=== PATIENT | male | born 1955 | race Two or more races ===

== ENCOUNTER 2017-11-11 17:06 | Emergency (ER) | payer MEDICARE ==
--- NOTE | 2017-11-11 18:15 | ER Document Report ---
ED Medical Screen (RME) - General Chief Complaint: Hemorrhoids Stated Complaint: BLEEDING Time Seen by Provider: 11/11/17 18:09 Mode of Arrival: Ambulatory Information source: Patient, Relative TRAVEL OUTSIDE OF THE U.S. IN LAST 30 DAYS: Yes COUNTRY TRAVELED TO/FROM: [facility] Onset: Yesterday Onset/Duration: Sudden Quality of pain: No pain Associated Symptoms: None. denies: Dizzy/lightheaded, Nausea, Shortness of breath, Vomiting, Weakness Exacerbated by: Other - BOWEL MOVEMENT Relieved by: Denies Similar symptoms previously: No Recently seen / treated by doctor: No - Related Data Allergies/Adverse Reactions: No Known Allergies Allergy (Verified 02/09/15 13:59) Home Medications: Unable to verbalize list at this time. Past Medical History - General Information source: Patient - Social History Chew tobacco use (# tins/day): No Frequency of alcohol use: None Drug Abuse: None Lives with: Spouse/Significant other - Past Medical History Cardiac Medical History: Reports: Hx Hypertension, Other - SEVERE VALVULAR DISEASE, S/P VALVE REPLACEMENT Renal/ Medical History: Denies: Hx Peritoneal Dialysis Past Surgical History: Reports: Hx Appendectomy, Hx Cardiac Surgery - pace maker , 2 valves replaced - Immunizations Hx Diphtheria, Pertussis, Tetanus Vaccination: Yes Review of Systems - Review of Systems Constitutional: No symptoms reported EENT: No symptoms reported Cardiovascular: No symptoms reported Respiratory: No symptoms reported Gastrointestinal: See HPI Genitourinary: No symptoms reported Musculoskeletal: No symptoms reported Skin: No symptoms reported Neurological/Psychological: No symptoms reported Physical Exam - Vital signs Vitals: Temp Pulse Resp BP Pulse Ox 97.4 F 81 18 113/72 99 11/11/17 17:11 11/11/17 17:11 11/11/17 17:11 11/11/17 17:11 11/11/17 17:11 Interpretation: Normal. No: Tachycardic, Tachypneic, Febrile - General General appearance: Appears well, Alert In distress: None - HEENT Head: Normocephalic Eyes: Normal. No: Pale conjunctiva Conjunctiva: Normal Ears: Normal Nasal: Normal Mouth/Lips: Normal Mucous membranes: Normal - Respiratory Respiratory status: No respiratory distress - Cardiovascular Rhythm: Regular - Abdominal Inspection: Normal Distension: No distension - Extremities General upper extremity: Normal inspection General lower extremity: Normal inspection. No: Edema - Neurological Neuro grossly intact: Yes - Psychological Associated symptoms: Normal affect, Normal mood - Skin Skin Temperature: Warm Skin Moisture: Dry Skin Color: Normal Skin Turgor: Elastic Course - Vital Signs Vital signs: Temp Pulse Resp BP Pulse Ox 97.4 F 81 18 113/72 99 11/11/17 17:11 11/11/17 17:11 11/11/17 17:11 11/11/17 17:11 11/11/17 17:11
[2017-11-11 18:33] LABS: ABSOLUTE BASOPHILS # (AUTO) 0.1 10^3/uL (0.0-0.2); ABSOLUTE EOSINOPHILS # (AUTO) 0.1 10^3/uL (0.0-0.6); ABSOLUTE LYMPHOCYTES (AUTO) 1.3 10^3/uL (0.5-4.7); ABSOLUTE MONOCYTES (AUTO) 0.6 10^3/uL (0.1-1.4); ABSOLUTE NEUT (AUTO) 4.5 10^3/uL (1.7-8.2); BASOPHILS % (AUTO) 0.8 % (0-2); EOSINOPHILS % (AUTO) 0.9 % (0-6); HEMATOCRIT 48.6 % (37.9-51.0); HEMOGLOBIN 16.4 g/dL (13.5-17.0); LYMPHOCYTES % (AUTO) 20.6 % (13-45); MEAN CORPUSCULAR HEMOGLOBIN 30.1 pg (27.0-33.4); MEAN CORPUSCULAR HGB CONC 33.7 g/dL (32.0-36.0); MEAN CORPUSCULAR VOLUME 89 fl (80-97); PLATELET COUNT 161 10^3/uL (150-450); RED BLOOD COUNT 5.44 10^6/uL (4.35-5.55); RED CELL DISTRIBUTION WIDTH 14.3 % (11.5-14.0); SEGMENTED NEUTROPHILS % (AUTO) 68.7 % (42-78); TOTAL CELLS COUNTED % (AUTO) 100 %; WHITE BLOOD COUNT 6.5 10^3/uL (4.0-10.5)
[2017-11-11 18:55] LABS: ALANINE AMINOTRANSFERASE 33 U/L (21-72); ALBUMIN 4.4 g/dL (3.5-5.0); ALKALINE PHOSPHATASE 54 U/L (38-126); ANION GAP 12 (5-19); ASPARTATE AMINO TRANSFERASE 29 U/L (17-59); BILIRUBIN,DIRECT 0.3 mg/dL (0.0-0.4); BILIRUBIN,TOTAL 0.7 mg/dL (0.2-1.3); BLOOD UREA NITROGEN 32 mg/dL (7-20); CALCIUM 9.8 mg/dL (8.4-10.2); CARBON DIOXIDE 31 mmol/L (22-30); CHLORIDE 100 mmol/L (98-107); GLUCOSE 89 mg/dL (75-110); POTASSIUM 5.5 mmol/L (3.6-5.0); SODIUM 143.2 mmol/L (137-145); TOTAL PROTEIN 7.7 g/dL (6.3-8.2)
[2017-11-11 19:12] LABS: INTERNATIONAL RATION (INR) 2.84; PROTHROMBIN TIME 31.1 SEC (11.4-15.4)
--- NOTE | 2017-11-11 20:46 | ER Document Report ---
ED GI Bleed / Rectal Pain - General Chief Complaint: Hemorrhoids Stated Complaint: BLEEDING Time Seen by Provider: 11/11/17 18:09 Mode of Arrival: Ambulatory Notes: Patient is a 61-year-old male who is visiting from [place] who is been there for the past 3 months who presents emergency department the chief complaint of bleeding hemorrhoids. His daughter at the bedside is translating states that he has a history of hemorrhoids and is on Coumadin for previous pacemaker and valve replacement. She states that they were concerned since he had bleeding and was on Coumadin. States that bleeding was only after he had a formed bowel movement has been having issues with constipation. Patient states that the bleeding stopped little bit of pressure and has not had issues throughout the day. He denies any pain at this time, lightheadedness dizziness or difficulty walking. TRAVEL OUTSIDE OF THE U.S. IN LAST 30 DAYS: Yes COUNTRY TRAVELED TO/FROM: [facility] - Related Data Allergies/Adverse Reactions: No Known Allergies Allergy (Verified 02/09/15 13:59) Home Medications: Unable to verbalize list at this time. Past Medical History - General Information source: Patient - Social History Smoking Status: Never Smoker Chew tobacco use (# tins/day): No Frequency of alcohol use: None Drug Abuse: None Lives with: Spouse/Significant other Family History: Reviewed & Not Pertinent Patient has suicidal ideation: No Patient has homicidal ideation: No - Past Medical History Cardiac Medical History: Reports: Hx Hypertension, Other - SEVERE VALVULAR DISEASE, S/P VALVE REPLACEMENT Renal/ Medical History: Denies: Hx Peritoneal Dialysis Past Surgical History: Reports: Hx Appendectomy, Hx Cardiac Surgery - pace maker , 2 valves replaced - Immunizations Hx Diphtheria, Pertussis, Tetanus Vaccination: Yes Hx Pneumococcal Vaccination: 04/12/14 Physical Exam - Vital signs Vitals: Temp Pulse Resp BP Pulse Ox 97.4 F 81 18 113/72 99 11/11/17 17:11 11/11/17 17:11 11/11/17 17:11 11/11/17 17:11 11/11/17 17:11 - Notes Notes: PHYSICAL EXAM GENERAL: Alert, interacts well. NECK: Full range of motion. Supple. Trachea midline. LUNGS: Clear to auscultation bilaterally, no wheezes, rales, or rhonchi. No respiratory distress. HEART: Regular rate and rhythm. No murmurs, gallops, or rubs. ABDOMEN: Soft, nondistended, nontender. No guarding, rebound, or rigidity.. Bowel sounds present in all 4 quadrants. Rectal: Presence of 1 external hemorrhoid that is not significantly inflamed, nontender no active bleeding. Digital exam without any internal hemorrhoids, tenderness. EXTREMITIES: Moves all 4 extremities spontaneously. No edema, radial and dorsalis pedis pulses 2/4 bilaterally. No cyanosis. NEUROLOGICAL: Alert and oriented x4. Normal speech. PSYCH: Normal affect, normal mood. SKIN: Warm, dry, normal turgor. No rashes or lesions noted. Course - Re-evaluation Re-evalutation: 11/11/17 20:42 Presentation is most consistent with uncomplicated external hemorrhoids. No evidence of anemia on CBC. Patient's abdominal exam is otherwise benign. I do not suspect a more significant lower GI bleed or upper GI bleed based on history , vitals, normal hemoglobin, and patient's overall well appearance. The patient will be discharged home on conservative treatment recommendations as well as recommendations for close outpatient follow-up. Return precautions have been reviewed. - Vital Signs Vital signs: Temp Pulse Resp BP Pulse Ox 98.1 F 78 20 115/74 99 11/11/17 20:54 11/11/17 20:54 11/11/17 20:54 11/11/17 20:54 11/11/17 20:54 - Laboratory Result Diagrams: 11/11/17 18:20 11/11/17 18:20 Laboratory results interpreted by me: 11/11/17 11/11/17 11/11/17 18:20 18:20 18:20 RDW 14.3 H PT 31.1 H Potassium 5.5 H Carbon Dioxide 31 H BUN 32 H Creatinine 1.33 H Est GFR (Non-Af Amer) 54 L Discharge - Discharge Clinical Impression: Bleeding external hemorrhoids Condition: Good Disposition: HOME, SELF-CARE Additional Instructions: You were seen today for hemorrhoids. The best treatment is to avoid straining while having bowel moments, avoiding heavy lifting, or any other activity that causes you to bear down forcefully. You need to make sure that your stools are soft and should start taking Docusate 200mg in the morning and at night until your stools are very soft and you can have a bowel movement without any straining. You can also soak in warm water, apply topical hemorrhoid cream that can be purchased at the store, and take tylenol or ibuprofen per box instructions as needed for pain. Please follow-up with your primary doctor. Return if you begin to have persistent bleeding, worsening pain, abdominal pain , fever >101, or any other symptoms that are concerning to you. Referrals: СВЕТЛАНА HERNANDES MD [Primary Care Provider] - Follow up as needed JENIFFER JONES MD [ACTIVE STAFF] - Follow up in 1 week
[2017-11-11 20:55] VITALS: BP 115/74
== END 2017-11-11 20:50 | disposition home or self-care (01) ==
LOC: ER 17:06
DX: K64.4 Residual hemorrhoidal skin tags (principal); Z95.0 Presence of cardiac pacemaker; Z79.01 Long term (current) use of anticoagulants; Z95.2 Presence of prosthetic heart valve; K59.00 Constipation, unspecified; I10 Essential (primary) hypertension
CPT/HCPCS: 36415; 80053; 85025; 85610; 99283

== ENCOUNTER 2018-06-23 18:11 | Emergency (ER) | payer MEDICARE ==
--- NOTE | 2018-06-23 20:45 | ER Document Report ---
ED General - General Chief Complaint: Numbness Stated Complaint: DIZZINESS Time Seen by Provider: 06/23/18 18:49 Notes: 62-year-old male with past medical history of hypertension, 2 valve replacement , pacemaker implantation 5 years ago presents to the emergency department with tingling and numbness in the corner of his left lip tip of his left index finger and his left toe that occurred at 6 PM this evening. He says his symptoms lasted for about 10 minutes and resolve spontaneously. He was eating at a restaurant was sitting down and the symptoms occurred suddenly. He denied any palpitations any dyspnea, headache, chest pain, nausea, diaphoresis, or any other symptoms. He denied any weakness at the time. Denies any gait changes. TRAVEL OUTSIDE OF THE U.S[place] IN LAST 30 DAYS: Yes COUNTRY TRAVELED TO/FROM: [facility] - HPI Patient complains to provider of: numbness corner of left lip, tip of left index finger, foot - Related Data Allergies/Adverse Reactions: No Known Allergies Allergy (Verified 02/09/15 13:59) Past Medical History - General Information source: Patient, Relative - Social History Smoking Status: Former Smoker Chew tobacco use (# tins/day): No Frequency of alcohol use: None Drug Abuse: None Family History: Reviewed & Not Pertinent Patient has suicidal ideation: No Patient has homicidal ideation: No - Past Medical History Cardiac Medical History: Reports: Hx Heart Attack, Hx Hypertension Renal/ Medical History: Denies: Hx Peritoneal Dialysis Past Surgical History: Reports: Hx Appendectomy, Hx Cardiac Surgery - pace maker , 2 valves replaced - Immunizations Hx Diphtheria, Pertussis, Tetanus Vaccination: Yes Hx Pneumococcal Vaccination: 04/12/14 Review of Systems - Review of Systems Constitutional: See HPI EENT: See HPI Cardiovascular: See HPI Respiratory: See HPI Gastrointestinal: See HPI Genitourinary: No symptoms reported Male Genitourinary: No symptoms reported Musculoskeletal: No symptoms reported Skin: No symptoms reported Hematologic/Lymphatic: No symptoms reported Neurological/Psychological: See HPI Physical Exam - Vital signs Vitals: Temp Pulse Resp BP Pulse Ox 97.4 F 77 16 130/74 H 99 06/23/18 18:20 06/23/18 18:20 06/23/18 18:20 06/23/18 18:20 06/23/18 18:20 - Notes Notes: Reviewed vital signs and nursing note as charted by RN. CONSTITUTIONAL: Well-appearing, well-nourished, acting appropriately for age HEAD: Normocephalic, atraumatic, no swelling EYES: PERRL, Conjunctivae clear, no drainage, EOMI, no scleral icterus ENT: External ears without lesions, External auditory canal is patent, airway patent, mucous membranes pink and moist NECK: Supple, no cervical lymphadenopathy, no masses CARD: Regular rate and rhythm, no murmurs, no rubs, no gallops, capillary refill < 2 seconds, symmetric pulses RESP: The lungs are clear to auscultation bilaterally, no wheezing, no rales, no rhonchi. Respiratory rate and effort are normal, normal chest excursion. No respiratory distress, no retractions, no stridor, no nasal flaring, no accessory muscle use. ABD/GI: Normal bowel sounds, non-distended, soft, non-tender, no rebound, no guarding, no palpable organomegaly EXT: Normal ROM in all joints, non-tender to palpation, no effusions, no edema SKIN: Normal color for age and race, warm, dry, good turgor, no acute lesions noted NEURO: No facial asymmetry, moves all extremities equally, motor and sensory function intact. No pronator drift, no focal neurologic deficits. Course - Re-evaluation Re-evalutation: 06/23/18 20:44 62-year-old otherwise healthy patient presents for transient numbness and tingling in his left upper lip, left index finger, left toe. Patient does have a cardiac history that includes hypertension, 2 valve replacement who is on Coumadin, and pacemaker placement in [place] 5 years ago. Although symptoms resolved in 10 minutes spontaneously plan is to initiate a TIA workup to include labs, urine, CT head. 06/23/18 21:03 Discussed with patient patient refuses CT head. Reiterated that we are concerned for potential TIA but patient does not want a CT head done at this time. 06/23/18 22:10 Followed up with patient after all lab work was completed. Discussed again with 1 of the attending physicians patient's refusal of CT head. I went and spoke with the patient and told him that that was the most important test. Concerned about with respect for a brain bleed and the fact that he was on anticoagulation. He said he is visiting here from [place] and he was still refuses the scan and will follow up with his doctor who he is supposed to see next week in [place]. I again reiterated that we cannot complete the stroke workup and we are unable to tell if there is any brain abnormalities. Troponin was drawn and returned 0.06, below cutoff for AMI. Because patient has no history of CAD and had no chest pain, dyspnea, or any other cardiac symptoms we will not repeat a second troponin. 06/23/18 22:13 - Vital Signs Vital signs: Temp Pulse Resp BP Pulse Ox 97.4 F 77 16 130/74 H 99 06/23/18 18:20 06/23/18 18:20 06/23/18 18:20 06/23/18 18:20 06/23/18 18:20 - Laboratory Result Diagrams: 06/23/18 21:13 06/23/18 21:13 Laboratory results interpreted by me: 06/23/18 06/23/18 06/23/18 21:13 21:13 21:13 RDW 14.2 H PT 32.2 H Potassium 5.3 H Carbon Dioxide 32 H BUN 29 H Creatinine 1.32 H Est GFR (Non-Af Amer) 55 L Discharge - Discharge Clinical Impression: Numbness and tingling in left hand Condition: Good Disposition: HOME, SELF-CARE Additional Instructions: Seen in the emergency department this evening for numbness in the corner of your left mouth, the tip of your left index finger, and your left mahesh Although the symptoms are not typical of a strokelike pattern or a TIA pattern, we would still need to do a stroke workup. Unfortunately, the most important test to rule out stroke or brain bleed is the CT head which you refused. The rest of your lab work was normal. It is very important follow-up with your primary doctor when you go back to [place]. If you have repeat symptoms of numbness in your left side, weakness in any extremity, severe sudden headache, you pass out, chest pain, shortness of breath, immediately return to the emergency department. Referrals: СВЕТЛАНА HERNANDES MD [Primary Care Provider] - Follow up as needed
[2018-06-23 21:23] LABS: ABSOLUTE MONOCYTES (AUTO) 0.6 10^3/uL (0.1-1.4); ABSOLUTE NEUT (AUTO) 4.9 10^3/uL (1.7-8.2); BASOPHILS % (AUTO) 0.6 % (0-2); EOSINOPHILS % (AUTO) 0.7 % (0-6); HEMATOCRIT 48.8 % (37.9-51.0); HEMOGLOBIN 16.4 g/dL (13.5-17.0); LYMPHOCYTES % (AUTO) 15.6 % (13-45); MEAN CORPUSCULAR HEMOGLOBIN 30.5 pg (27.0-33.4); MEAN CORPUSCULAR HGB CONC 33.6 g/dL (32.0-36.0); MEAN CORPUSCULAR VOLUME 91 fl (80-97); MONOCYTES % (AUTO) 8.6 % (3-13); PLATELET COUNT 184 10^3/uL (150-450); RED BLOOD COUNT 5.37 10^6/uL (4.35-5.55); RED CELL DISTRIBUTION WIDTH 14.2 % (11.5-14.0); SEGMENTED NEUTROPHILS % (AUTO) 74.5 % (42-78); TOTAL CELLS COUNTED % (AUTO) 100 %; WHITE BLOOD COUNT 6.6 10^3/uL (4.0-10.5)
[2018-06-23 21:26] LABS: INTERNATIONAL RATION (INR) 2.96; PROTHROMBIN TIME 32.2 SEC (11.4-15.4)
[2018-06-23 21:34] LABS: APPEARANCE,URINE CLEAR; BILIRUBIN,URINE NEGATIVE (NEGATIVE); COLOR,URINE STRAW; GLUCOSE, URINE NEGATIVE (NEGATIVE); KETONES,URINE NEGATIVE (NEGATIVE); LEUKOCYTE ESTERASE,URINE NEGATIVE (NEGATIVE); NITRITE,URINE NEGATIVE (NEGATIVE); PROTEIN,URINE NEGATIVE (NEGATIVE); URINE SPECIFIC GRAVITY 1.006; UROBILINOGEN,URINE NEGATIVE mg/dL (<2.0)
[2018-06-23 21:39] LABS: ALANINE AMINOTRANSFERASE 36 U/L (21-72); ALBUMIN 4.6 g/dL (3.5-5.0); ALKALINE PHOSPHATASE 67 U/L (38-126); ANION GAP 10 (5-19); ASPARTATE AMINO TRANSFERASE 36 U/L (17-59); BILIRUBIN,DIRECT 0.3 mg/dL (0.0-0.4); BILIRUBIN,TOTAL 0.7 mg/dL (0.2-1.3); BLOOD UREA NITROGEN 29 mg/dL (7-20); CARBON DIOXIDE 32 mmol/L (22-30); CHLORIDE 101 mmol/L (98-107); GLUCOSE 99 mg/dL (75-110); POTASSIUM 5.3 mmol/L (3.6-5.0); SODIUM 142.7 mmol/L (137-145); TOTAL PROTEIN 8.1 g/dL (6.3-8.2)
--- NOTE | 2018-06-23 21:40 | RADIOLOGY REPORT (SQ) ---
EXAM DESCRIPTION: XR CHEST 1 VIEW COMPLETED DATE/TME: 06/23/2018 20:40 CLINICAL HISTORY: 62 years, Male, weakness COMPARISON: EXAM DESCRIPTION: CLINICAL HISTORY: weakness COMPARISON: 02/09/2015 FINDINGS: Single view of the chest is submitted. Cardiac silhouette is moderately enlarged. Postsurgical changes are seen with sternotomy wires, cardiac electronic device and prosthetic cardiac valves. There is consolidation that has worsened at the left lung base. Mild bilateral pulmonary edema is seen. No consolidation in the right lung. IMPRESSION: Cardiomegaly and left lung base consolidation.
[2018-06-23 23:32] VITALS: BP 95/69
--- NOTE | 2018-06-24 21:27 | EKG REPORT ---
SEVERITY:- ABNORMAL ECG - AFIB/FLUTTER AND VENTRICULAR-PACED RHYTHM : Confirmed by: Le Tinsley MD 24-Jun-2018 21:26:51
== END 2018-06-23 23:32 | disposition home or self-care (01) ==
LOC: ER 18:11
DX: R20.0 Anesthesia of skin (principal); R20.2 Paresthesia of skin; I25.2 Old myocardial infarction; I10 Essential (primary) hypertension; Z95.2 Presence of prosthetic heart valve; Z79.01 Long term (current) use of anticoagulants; Z95.0 Presence of cardiac pacemaker; Z87.891 Personal history of nicotine dependence
CPT/HCPCS: 36415; 71045; 80053; 81001; 84484; 85025; 85610; 93005; 93010; 99284

== ENCOUNTER 2020-03-15 17:39 | Inpatient (IN) | payer MEDICARE ==
--- NOTE | 2020-03-15 19:05 | ER Document Report ---
ED Medical Screen (RME) - General Chief Complaint: Abdominal Pain Stated Complaint: ABDOMINAL PAIN Time Seen by Provider: 03/15/20 18:42 Primary Care Provider: СВЕТЛАНА HERNANDES MD [Primary Care Provider] - Follow up as needed Mode of Arrival: Ambulatory Information source: Patient Notes: Presents with left-sided abdominal pain that began 2 to 3 months ago and w orsened in the last week. Patient reports mild nausea, but denies fever, constipation, diarrhea, and urinary symptoms. Has a history of 2 mechanical valves, pacemaker, and cardiomyopathy. He currently is on Coumadin. Abdomen: Active bowel sounds in all 4 quadrants, soft, non-distended, epigrastric tenderness. Exam limited due to patient's seated position in triage. I have greeted and performed a rapid initial assessment of this patient. A comprehensive ED assessment and evaluation of the patient, analysis of test results and completion of medical decision making process will be conducted by an additional ED providers. TRAVEL OUTSIDE OF THE [place] IN LAST 30 DAYS: Yes - Related Data Allergies/Adverse Reactions: No Known Allergies Allergy (Verified 02/09/15 13:59) Past Medical History - Social History Frequency of alcohol use: None Drug Abuse: None - Past Medical History Cardiac Medical History: Reports: Hx Heart Attack, Hx Hypertension Renal/ Medical History: Denies: Hx Peritoneal Dialysis Past Surgical History: Reports: Hx Appendectomy, Hx Cardiac Surgery - pace maker, 2 valves replaced - Immunizations Hx Diphtheria, Pertussis, Tetanus Vaccination: Yes Physical Exam - Vital signs Vitals: Temp Pulse Resp BP Pulse Ox 97.5 F 80 16 106/71 98 03/15/20 17:45 03/15/20 17:45 03/15/20 17:45 03/15/20 17:45 03/15/20 17:45 Course - Vital Signs Vital signs: Temp Pulse Resp BP Pulse Ox 97.5 F 80 16 106/71 98 03/15/20 17:45 03/15/20 17:45 03/15/20 17:45 03/15/20 17:45 03/15/20 17:45 Doctor's Discharge - Discharge Referrals: СВЕТЛАНА HERNANDES MD [Primary Care Provider] - Follow up as needed
[2020-03-15 19:44] LABS: ABSOLUTE BASOPHILS # (AUTO) 0.1 10^3/uL (0.0-0.2); ABSOLUTE EOSINOPHILS # (AUTO) 0.2 10^3/uL (0.0-0.6); ABSOLUTE LYMPHOCYTES (AUTO) 1.1 10^3/uL (0.5-4.7); ABSOLUTE MONOCYTES (AUTO) 0.5 10^3/uL (0.1-1.4); ABSOLUTE NEUT (AUTO) 3.2 10^3/uL (1.7-8.2); BASOPHILS % (AUTO) 1.1 % (0-2); EOSINOPHILS % (AUTO) 4.8 % (0-6); HEMATOCRIT 48.1 % (37.9-51.0); HEMOGLOBIN 15.5 g/dL (13.5-17.0); LYMPHOCYTES % (AUTO) 22.4 % (13-45); MEAN CORPUSCULAR HEMOGLOBIN 29.2 pg (27.0-33.4); MEAN CORPUSCULAR HGB CONC 32.2 g/dL (32.0-36.0); MEAN CORPUSCULAR VOLUME 91 fl (80-97); MONOCYTES % (AUTO) 9.4 % (3-13); PLATELET COUNT 115 10^3/uL (150-450); RED CELL DISTRIBUTION WIDTH 17.6 % (11.5-14.0); SEGMENTED NEUTROPHILS % (AUTO) 62.3 % (42-78); TOTAL CELLS COUNTED % (AUTO) 100 %; WHITE BLOOD COUNT 5.1 10^3/uL (4.0-10.5)
[2020-03-15 19:55] LABS: ALKALINE PHOSPHATASE 130 U/L (38-126); ANION GAP 10 (5-19); ASPARTATE AMINO TRANSFERASE 42 U/L (17-59); BILIRUBIN,DIRECT 0.7 mg/dL (0.0-0.4); BILIRUBIN,TOTAL 1.8 mg/dL (0.2-1.3); BLOOD UREA NITROGEN 38 mg/dL (7-20); CARBON DIOXIDE 26 mmol/L (22-30); CHLORIDE 99 mmol/L (98-107); GLUCOSE 97 mg/dL (75-110); POTASSIUM 5.5 mmol/L (3.6-5.0)
--- NOTE | 2020-03-15 20:16 | ER Document Report ---
Doctor's Note Notes: 03/15/20 20:11 Lab called with indeterminate troponin 0 0.068. Chart reviewed, no EKG has been done yet, it was ordered an hour ago. Nursing staff made aware.
--- NOTE | 2020-03-15 21:14 | RADIOLOGY REPORT (SQ) ---
EXAM DESCRIPTION: CT CHEST ANGIOGRAPHY WITHOUT THEN WITH IV CONTRAST, CT ABDOMEN PELVIS ANGIOGRAPHY WITHOUT THEN WITH IV CONTRAST COMPLETED DATE/TME: 03/15/2020 18:59 (accession [id number]), 03/15/2020 19:02 (accession [id number]) CLINICAL HISTORY: 64 years Male epigastric pain COMPARISON: None. TECHNIQUE: Contiguous axial images obtained through the chest and abdomen pelvis during the infusion of IV contrast. Reformatted images obtained. 3-D MIP reformatted images obtained. NASCET criteria utilized for the evaluation of any stenotic lesions. This exam was performed according to our department optimization program which includes automated exposure control, adjustment of the mA and/or kv according to patient size and/or use of iterative reconstruction technique. FINDINGS: CHEST: Aorta is normal in caliber without dissection or rupture. There is marked cardiac enlargement. Bilateral basilar atelectasis and small bilateral pleural effusions. No alveolar consolidation and no evidence of pneumothorax. There is no significant hilar or mediastinal adenopathy. No pericardial effusion. Pacemaker in place. Abdomen pelvis: The liver, pancreas and spleen are unremarkable. Adrenal glands and kidneys are within normal limits. No evidence of aortic dissection or aneurysm. Scattered calcification is present. There is a gallstone in the gallbladder. There is pericholecystic stranding and wall thickening concerning for cholecystitis. There is a small amount of stranding throughout the abdomen and pelvis with a small amount of fluid in the pelvis. No evidence of bowel obstruction. Moderate fecal material throughout the colon. IMPRESSION: No evidence of aortic dissection or aneurysm Marked cardiac enlargement, predominantly left heart enlargement Basilar atelectasis and small bilateral effusions Wall thickening and edema in the gallbladder with probable cholelithiasis. Findings are concerning for acute cholecystitis although other etiology is not excluded Small amount of stranding in the abdomen and free fluid in the pelvis of uncertain clinical significance
--- NOTE | 2020-03-15 22:26 | RADIOLOGY REPORT (SQ) ---
EXAM DESCRIPTION: US ABDOMEN LIMITED COMPLETED DATE/TME: 03/15/2020 21:25 CLINICAL HISTORY: 64 years, Male, epigastric pain COMPARISON: None. TECHNIQUE: Limited right upper quadrant ultrasound LIMITATIONS: None. FINDINGS: Liver is homogenous in echotexture without focal lesion. Pancreas not well seen due to bowel gas. Visualized abdominal aorta, inferior vena cava are unremarkable. Shadowing stones in the gallbladder lumen. Gallbladder wall is thickened at 6 mm. Negative sonographic Boss sign. No pericholecystic fluid. CBD measures 3 mm. Right kidney is unremarkable at 11 cm. No ascites IMPRESSION: Cholelithiasis. Gallbladder wall is slightly thickened at 6 mm however there is no pericholecystic fluid. CBD not dilated copyright 2010 [employer]- All Rights Reserved
[2020-03-16] MEDS ORDERED: PIPERACILLIN/TAZOBACTAM 3.375 GM VIAL IV ONE ×3 (03:54→08:18)
[2020-03-16] MEDS ORDERED: ONDANSETRON HCL INJ/PF 4 MG/2 ML SDV IV PRN (07:01)
[2020-03-16] MEDS ORDERED: MORPHINE SULFATE 10 MG/ML INJ IV PRN ×4 (07:06→07:28)
[2020-03-16] MEDS ORDERED: LORAZEPAM INJ 2 MG/1 ML VIAL IV PRN (07:06)
[2020-03-16] MEDS ORDERED: ACETAMINOPHEN 650 MG SUPP.RECT PR PRN (07:06)
[2020-03-16] MEDS ORDERED: PIPERACILLIN/TAZOBACTAM 3.375 GM VIAL IV SCH (07:15)
--- NOTE | 2020-03-16 07:16 | PDOC H&P ---
History of Present Illness Admission Date/PCP: 03/16/2020 06:36 СВЕТЛАНА HERNANDES Patient complains of: Abdominal pain History of Present Illness: SHANICE DENT is a 64 year old male who presented the emergency room with a 3-month history of epigastric abdominal pain. He admits having intermittent episodes of severe colicky pressure epigastric abdominal pain without radiation for the last 3 months. The pain comes frequently and over the last 1 to 2 weeks has occurring at least once daily. The pain is worse after eating and usually persists for several hours. The pain is associated with nausea. Patient denies other associated or accompanying signs and symptoms. He admits prior similar episodes. He has not identified any additional aggravating or ameliorating factors for his pain. Patient is noted to be a difficult/poor historian. In the emergency room the patient was found to have acute cholecystitis and was subsequently admitted to the hospital for further evaluation and treatment with Dr. Wicho Summers consulting for surgery. Past Medical History Cardiac Medical History: Reports: Congestive Heart Failure - Chronic systolic congestive heart failure with EF of 20-25%, Myocardial Infarction, Hypertension, Other - Valvular (mitral) heart disease, dilated cardiomyopathy Pulmonary Medical History: Denies: Asthma, Chronic Obstructive Pulmonary Disease (COPD) EENT Medical History: Denies: Cataracts, Ears - Hearing aids Neurological Medical History: Denies: Hemorrhagic CVA, Ischemic CVA, Seizures Endocrine Medical History: Denies: Diabetes Mellitus Type 1, Diabetes Mellitus Type 2, Hyperthyroidism, Hypothyroidism, Obesity Renal/ Medical History: Denies: Chronic Kidney Disease, Nephrolithiasis Malignancy Medical History: Reports: None GI Medical History: Denies: Cirrhosis, Hepatitis, Peptic Ulcer Disease Musculoskeltal Medical History: Denies: Arthritis, Gout Skin Medical History: Denies: Eczema, Psoriasis Psychiatric Medical History: Denies: Alcohol Dependency, Substance Abuse, Tobacco Dependency Traumatic Medical History: Reports: None Hematology: Denies: Anemia, Bleeding Tendencies Infectious Medical History: Reports: None Past Surgical History Past Surgical History: Reports: Appendectomy, Cardiac Catheterization, Pacemaker, Valve Replacement - Mechanical mitral valve ([facility]) Social History Information Source: Patient Lives with: Spouse/Significant other Smoking Status: Never Smoker Electronic Cigarette use?: No Frequency of Alcohol Use: None Hx Recreational Drug Use: No Drugs: None Hx Prescription Drug Abuse: No - Advance Directive Resuscitation Status: Full Code Surrogate healthcare decision maker:: Susan Blanchard Family History Family History: Reviewed & Not Pertinent Parental Family History Reviewed: Yes Children Family History Reviewed: No Sibling(s) Family History Reviewed.: Yes Medication/Allergy Home Medications: Amiodarone HCl [Cordarone 200 mg Tablet] 200 mg PO DAILY 02/09/15 Carvedilol [Coreg 25 mg Tablet] 25 mg PO BID 02/09/15 Digoxin [Lanoxin 0.125 mg Tablet] 0.125 mg PO DAILY 02/09/15 Furosemide [Lasix 40 mg Tablet] 40 mg PO DAILY 02/09/15 Isosorbide Mononitrate [Imdur 60 mg Tablet.er] 60 mg PO DAILY 02/09/15 Lisinopril 20 mg PO DAILY 02/09/15 Spironolactone 25 mg PO DAILY 02/09/15 Ranitidine HCl [Zantac] 300 mg PO ACHS 02/10/15 Enoxaparin Sodium [Lovenox Inj 100 mg/1 ml Disp.syrin] 97 mg SUBCUT Q12 #30 disp.syrin 02/13/15 Penicillin V Potassium [Penicillin Vk 250 mg Tablet] 250 mg PO DAILY #60 tablet 02/13/15 Sucralfate [Carafate Susp 1 gm/10 ml Udcup] 1 gm PO ACHS #0 udc 02/13/15 Warfarin Sodium [Jantoven 5 mg Tablet] 10 mg PO QHS #60 tablet 02/13/15 Benzonatate [Tessalon Perles 100 mg Capsule] 100 mg PO ASDIR PRN #15 capsule 06/23/18 Allergies/Adverse Reactions: No Known Allergies Allergy (Verified 02/09/15 13:59) Review of Systems Constitutional: ABSENT: chills, fever(s) Eyes: ABSENT: visual disturbances, other - Eye pain Ears: ABSENT: hearing changes, other - Ear pain Nose, Mouth, and Throat: ABSENT: headache(s), sore throat Cardiovascular: ABSENT: chest pain, palpitations Respiratory: ABSENT: cough, dyspnea Gastrointestinal: PRESENT: as per HPI, abdominal pain, nausea. ABSENT: constipation, diarrhea, vomiting Genitourinary: ABSENT: dysuria, hematuria Musculoskeletal: ABSENT: back pain, joint swelling Integumentary: ABSENT: pruritus, rash Neurological: ABSENT: confusion, convulsions, focal weakness, memory loss, syncope Psychiatric: ABSENT: anxiety, depression Endocrine: ABSENT: cold intolerance, heat intolerance Hematologic/Lymphatic: ABSENT: easy bleeding, easy bruising Allergic/Immunologic: ABSENT: seasonal rhinorrhea Physical Exam Vital Signs: Temp Pulse Resp BP Pulse Ox 97.5 F 80 18 106/71 99 03/15/20 17:45 03/15/20 17:45 03/16/20 06:14 03/15/20 17:45 03/16/20 06:16 Intake & Output 03/14/20 03/15/20 03/16/20 23:59 23:59 23:59 Intake Total 200 Balance 200 Weight 70.9 kg General appearance: PRESENT: cooperative, mild distress - Secondary to abdominal pain Head exam: PRESENT: atraumatic, normocephalic Eye exam: PRESENT: conjunctiva pink. ABSENT: conjunctival injection, scleral icterus Ear exam: PRESENT: normal external ear exam. ABSENT: bleeding, drainage Mouth exam: PRESENT: dry mucosa, neck supple Neck exam: ABSENT: thyromegaly, tracheal deviation Respiratory exam: PRESENT: clear to auscultation andriy, symmetrical, unlabored Cardiovascular exam: PRESENT: clicks - Mechanical valve, RRR, systolic murmur - Clinical murmur. ABSENT: gallop Pulses: PRESENT: normal radial pulses, normal dorsalis pedis pul Vascular exam: PRESENT: normal capillary refill. ABSENT: pallor GI/Abdominal exam: PRESENT: Boss's sign, normal bowel sounds, soft, tenderness - Epigastric/right upper quadrant tenderness to palpation Rectal exam: PRESENT: deferred Extremities exam: ABSENT: joint swelling, pedal edema Musculoskeletal exam: ABSENT: deformity, dislocation Neurological exam: PRESENT: alert, oriented to person, oriented to place, oriented to time, oriented to situation, CN II-XII grossly intact. ABSENT: motor sensory deficit Psychiatric exam: PRESENT: appropriate affect, normal mood Skin exam: PRESENT: dry, intact, warm. ABSENT: jaundice, rash, urticaria Results Laboratory Results: 03/15/20 19:20 03/15/20 19:20 03/15/20 03/15/20 19: 19:20 WBC 5.1 RBC 5.30 Hgb 15.5 Hct 48.1 MCV 91 MCH 29.2 MCHC 32.2 RDW 17.6 H Plt Count 115 L Seg Neutrophils % 62.3 Sodium 134.9 L Potassium 5.5 H Chloride 99 Carbon Dioxide 26 Anion Gap 10 BUN 38 H Creatinine 1.46 H Est GFR ( Amer) 59 L Glucose 97 Calcium 9.0 Total Bilirubin 1.8 H AST 42 Alkaline Phosphatase 130 H Total Protein 7.0 Albumin 4.0 Lipase 240.9 03/15/20 19:20 Troponin I 0.068 Impressions: Chest/Abdomen CTA 03/15/20 18:59 IMPRESSION: No evidence of aortic dissection or aneurysm Marked cardiac enlargement, predominantly left heart enlargement Basilar atelectasis and small bilateral effusions Wall thickening and edema in the gallbladder with probable cholelithiasis. Findings are concerning for acute cholecystitis although other etiology is not excluded Small amount of stranding in the abdomen and free fluid in the pelvis of uncertain clinical significance Abdomen/Pelvis CTA 03/15/20 19:02 IMPRESSION: No evidence of aortic dissection or aneurysm Marked cardiac enlargement, predominantly left heart enlargement Basilar atelectasis and small bilateral effusions Wall thickening and edema in the gallbladder with probable cholelithiasis. Findings are concerning for acute cholecystitis although other etiology is not excluded Small amount of stranding in the abdomen and free fluid in the pelvis of uncertain clinical significance Abdomen Ultrasound 03/15/20 21:25 IMPRESSION: Cholelithiasis. Gallbladder wall is slightly thickened at 6 mm however there is no pericholecystic fluid. CBD not dilated copyright 2011 [employer]- All Rights Reserved Assessment and Plan - Diagnosis (1) Acute calculous cholecystitis Is this a current diagnosis for this admission?: Yes (2) Abdominal pain Qualifiers: Abdominal location: epigastric Qualified Code(s): R10.13 - Epigastric pain Is this a current diagnosis for this admission?: Yes (3) History of mitral valve replacement with mechanical valve Is this a current diagnosis for this admission?: Yes (4) Chronic systolic congestive heart failure due to valvular disease Is this a current diagnosis for this admission?: Yes (5) Cardiac pacemaker in situ Is this a current diagnosis for this admission?: Yes (6) Valvular heart disease Is this a current diagnosis for this admission?: Yes (7) Atrial fibrillation Qualifiers: Atrial fibrillation type: permanent Qualified Code(s): I48.21 - Permanent atrial fibrillation Is this a current diagnosis for this admission?: Yes - Plan Summary Summary: Patient will be admitted to the medical service where he will receive routine supportive and symptomatic cares. Dr. Summers will be consulting for the surgical service. Patient will be placed on Zosyn intravenously and a cardiology consultation with Dr. Ramachandran will be obtained at Dr. Summers's request. Patient will be n.p.o. and therefore all medications will be converted to IV or other than oral administration. Patient will receive Ativan 1 mg IV every 4 hours as needed for anxiety or restlessness. Patient received morphine sulfate 2 to 4 mg IV every 2 hours as needed for pain. CBCs, metabolic profiles and additional laboratory and/or radiographic evaluations will be obtained as needed. - Time Time Spent with patient: 15-24 minutes Medications reviewed and adjusted accordingly: Yes Anticipated Discharge Disposition: Home with Home Health Anticipated Discharge Timeframe: Undetermined - Inpatient Certification Based on my medical assessment, after consideration of the patient's comorbidities, presenting symptoms, or acuity I expect that the services needed warrant INPATIENT care.: Yes I certify that my determination is in accordance with my understanding of Medicare's requirements for reasonable and necessary INPATIENT services [42 CFR 412.3e].: Yes Medical Necessity: Need Close Monitoring Due to Risk of Patient Decompensation, Need For IV Fluids, Need for Pain Control, Need for IV Antibiotics, Need for Surgery, Risk of Complication if Not Cared For in Hospital
[2020-03-16] MEDS ORDERED: PANTOPRAZOLE SODIUM 40 MG VIAL IV ONE (08:18)
[2020-03-16 08:19] LABS: INTERNATIONAL RATION (INR) 2.46; PARTIAL THROMBOPLASTIN TIME 35.2 SEC (23.5-35.8); PROTHROMBIN TIME 26.6 SEC (11.4-15.4)
[2020-03-16] MEDS: PIPERACILLIN SODIUM/TAZOBACTAM 3.375 GM in NORMAL SALINE 100 ML IV SCH ×3 (08:25→21:42)
[2020-03-16 08:31] LABS: DIGOXIN 1.3 ng/mL (0.8-2.0)
--- NOTE | 2020-03-16 08:36 | PDOC CONSULTATION ---
Consultation Consult Date: 03/16/20 Attending physician:: MARY GAN Provider Consulted: RUEL TRIMBLE Consult reason:: Cardiovascular risk assessment. History of Present Illness Admission Date/PCP: 03/16/20 07:44 СВЕТЛАНА PALMA History of Present Illness: SHANICE DENT is a 64 year old male with a very extensive and complicated cardiac history to include hypertension, heart failure with reduced ejection fraction suspected to be secondary to valvular heart disease and nonischemic cardiomyopathy with an ejection fraction between 20 and 25%, chronic atrial fibrillation, severe mitral stenosis and severe aortic stenosis status post mitral valve replacement with mechanical valve and status post aortic valve replacement with a mechanical prosthesis approximately 7 years ago, anticoagulated with warfarin, biventricular ICD which was apparently inter rogated 7 months ago in [place] and the patient was told he needed a generator change at that time who is consulted to our service for risk assessment. The patient had been having abdominal pain recently and upon evaluation in the emergency room it was determined that he has acute cholecystitis. Per the emergency room physician report surgery is treating him with antibiotics for now. The patient denies ischemic and heart failure symptoms at this point. I did speak with the patient's outpatient schedule maker, Dr. Palma, who evaluated the patient earlier this week and found that the ventr icular lead of the ICD is nonfunctional. Physical exam on 03/16/2020: GENERAL: Pleasant and conversational. Oriented x3 with normal mood. Not in acute distress. Well groomed and well developed. HEENT: Normocephalic, atraumatic. Pupils equal. Sclerae anicteric. Oropharynx moist. NECK: No JVD. No carotid bruits. LUNGS: Clear to auscultation bilaterally. Normal respiratory effort without the use of accessory muscles or intercostal retractions. CARDIOVASCULAR: Regular rate and rhythm, normal S1 and S2 without murmurs, rubs, or gallops. PMI not displaced. EXTREMITIES: Trace to 1+ pitting edema bilaterally, no cyanosis, no clubbing. +2 pulses femoral and pedal pulses bilaterally. SKIN: No lesions or rashes. MUSCULOSKELETAL: No chest tenderness to palpation. NEUROLOGIC: Nonfocal. No gross sensory or motor deficits bilateral upper or lower extremities. Past Medical History Cardiac Medical History: Reports: Congestive Heart Failure - Chronic systolic congestive heart failure with EF of 20-25%, Myocardial Infarction, Hypertension, Other - Valvular (mitral) heart disease, dilated cardiomyopathy Pulmonary Medical History: Denies: Asthma, Chronic Obstructive Pulmonary Disease (COPD) EENT Medical History: Denies: Cataracts, Ears - Hearing aids Neurological Medical History: Denies: Hemorrhagic CVA, Ischemic CVA, Seizures Endocrine Medical History: Denies: Diabetes Mellitus Type 1, Diabetes Mellitus Type 2, Hyperthyroidism, Hypothyroidism, Obesity Renal/ Medical History: Denies: Chronic Kidney Disease, Nephrolithiasis Malignancy Medical History: Reports: None GI Medical History: Denies: Cirrhosis, Hepatitis, Peptic Ulcer Disease Musculoskeltal Medical History: Denies: Arthritis, Gout Skin Medical History: Denies: Eczema, Psoriasis Psychiatric Medical History: Denies: Alcohol Dependency, Substance Abuse, Tobacco Dependency Traumatic Medical History: Reports: None Hematology: Denies: Anemia, Bleeding Tendencies Infectious Medical History: Reports: None Past Surgical History Past Surgical History: Reports: Appendectomy, Cardiac Catheterization, Pacemaker, Valve Replacement - Mechanical mitral valve ([facility]) Social History Lives with: Spouse/Significant other Smoking Status: Never Smoker Electronic Cigarette use?: No Frequency of Alcohol Use: None Hx Recreational Drug Use: No Drugs: None Hx Prescription Drug Abuse: No - Advance Directive Resuscitation Status: Full Code Family History Family History: Reviewed & Not Pertinent Parental Family History Reviewed: Yes Children Family History Reviewed: Yes Sibling(s) Family History Reviewed.: Yes Medication/Allergy Home Medications: Amiodarone HCl [Cordarone 200 mg Tablet] 200 mg PO DAILY 02/09/15 Carvedilol [Coreg 25 mg Tablet] 25 mg PO BID 02/09/15 Digoxin [Lanoxin 0.125 mg Tablet] 0.125 mg PO DAILY 02/09/15 Furosemide [Lasix 40 mg Tablet] 40 mg PO DAILY 02/09/15 Isosorbide Mononitrate [Imdur 60 mg Tablet.er] 60 mg PO DAILY 02/09/15 Lisinopril 20 mg PO DAILY 02/09/15 Spironolactone 25 mg PO DAILY 02/09/15 Ranitidine HCl [Zantac] 300 mg PO ACHS 02/10/15 Enoxaparin Sodium [Lovenox Inj 100 mg/1 ml Disp.syrin] 97 mg SUBCUT Q12 #30 disp.syrin 02/13/15 Penicillin V Potassium [Penicillin Vk 250 mg Tablet] 250 mg PO DAILY #60 tablet 02/13/15 Sucralfate [Carafate Susp 1 gm/10 ml Udcup] 1 gm PO ACHS #0 udc 02/13/15 Warfarin Sodium [Jantoven 5 mg Tablet] 10 mg PO QHS #60 tablet 02/13/15 Benzonatate [Tessalon Perles 100 mg Capsule] 100 mg PO ASDIR PRN #15 capsule 06/29 Allergies/Adverse Reactions: No Known Allergies Allergy (Verified 02/09/15 13:59) Physical Exam Vital Signs: Temp Pulse Resp BP Pulse Ox 97.5 F 80 18 106/71 99 03/15/20 17:45 03/15/20 17:45 03/16/20 06:14 03/15/20 17:45 03/16/20 06:16 Intake & Output 03/15/20 03/16/20 03/17/20 06:59 06:59 06:59 Intake Total 200 Balance 200 Weight 70.9 kg Results Laboratory Results: 03/15/20 19:20 03/15/20 19:20 03/15/20 03/15/20 19:20 19:20 WBC 5.1 RBC 5.30 Hgb 15.5 Hct 48.1 MCV 91 MCH 29.2 MCHC 32.2 RDW 17.6 H Plt Count 115 L Seg Neutrophils % 62.3 Sodium 134.9 L Potassium 5.5 H Chloride 99 Carbon Dioxide 26 Anion Gap 10 BUN 38 H Creatinine 1.46 H Est GFR ( Amer) 59 L Glucose 97 Calcium 9.0 Total Bilirubin 1.8 H AST 42 Alkaline Phosphatase 130 H Total Protein 7.0 Albumin 4.0 Lipase 240.9 03/15/20 19:20 Troponin I 0.068 Impressions: Chest/Abdomen CTA 03/15/20 18:59 IMPRESSION: No evidence of aortic dissection or aneurysm Marked cardiac enlargement, predominantly left heart enlargement Basilar atelectasis and small bilateral effusions Wall thickening and edema in the gallbladder with probable cholelithiasis. Findings are concerning for acute cholecystitis although other etiology is not excluded Small amount of stranding in the abdomen and free fluid in the pelvis of uncertain clinical significance Abdomen/Pelvis CTA 03/15/20 19:02 IMPRESSION: No evidence of aortic dissection or aneurysm Marked cardiac enlargement, predominantly left heart enlargement Basilar atelectasis and small bilateral effusions Wall thickening and edema in the gallbladder with probable cholelithiasis. Findings are concerning for acute cholecystitis although other etiology is not excluded Small amount of stranding in the abdomen and free fluid in the pelvis of uncertain clinical significance Abdomen Ultrasound 03/15/20 21:25 IMPRESSION: Cholelithiasis. Gallbladder wall is slightly thickened at 6 mm however there is no pericholecystic fluid. CBD not dilated copyright 2011 [employer]- All Rights Reserved 03/15/20 19:20 03/15/20 19:20 MCV 91 fl (80-97) 03/15/20 19:20 MCH 29.2 pg (27.0-33.4) 03/15/20 19:20 MCHC 32.2 g/dL (32.0-36.0) 03/15/20 19:20 RDW 17.6 % (11.5-14.0) H 03/15/20 19:20 Seg Neutrophils % 62.3 % (42-78) 03/15/20 19:20 Chloride 99 mmol/L (98-107) 03/15/20 19:20 Carbon Dioxide 26 mmol/L (22-30) 03/15/20 19:20 Anion Gap 10 (5-19) 03/15/20 19:20 Est GFR ( Amer) 59 (>60) L 03/15/20 19:20 Glucose 97 mg/dL (75-110) 03/15/20 19:20 Calcium 9.0 mg/dL (8.4-10.2) 03/15/20 19:20 Total Bilirubin 1.8 mg/dL (0.2-1.3) H 03/15/20 19:20 AST 42 U/L (17-59) 03/15/20 19:20 Alkaline Phosphatase 130 U/L (38-126) H 03/15/20 19:20 Total Protein 7.0 g/dL (6.3-8.2) 03/15/20 19:20 Albumin 4.0 g/dL (3.5-5.0) 03/15/20 19:20 Lipase 240.9 U/L (23-300) 03/15/20 19:20 03/15/20 19:20 Troponin I 0.068 Current Medication List Generic Name Dose Route Start Last Admin Trade Name Freq PRN Reason Stop Dose Admin Acetaminophen 650 mg 03/16/20 07:06 Tylenol 650 Mg Supp NH 04/15/20 07:05 Q4HP PRN For headache, pain or fever Dextrose/Sodium Chloride 1,000 mls @ 125 mls/hr 03/16/20 07:08 D5ns 1000 Ml Iv Soln IV 04/15/20 07:07 CONTINUOUS PRN THIS MED IS NOT "PRN" Piperacillin Sod/Tazobactam 100 mls @ 200 mls/hr 03/16/20 09:00 03/16/20 08:25 Sod 3.375 gm/ Sodium Chloride IV 03/23/20 08:59 200 mls/hr Q6A NATE Administration Lorazepam 1 mg 03/16/20 07:06 Ativan Inj 2 Mg/1 Ml Vial IV 03/23/20 07:05 Q4HP PRN ANXIETY/AGITATION Morphine Sulfate 2 mg 03/16/20 07:26 Morphine 10 Mg/Ml Inj IV 03/23/20 07:25 Q2HP PRN PAIN SCALE 2 Morphine Sulfate 3 mg 03/16/20 07:28 Morphine 10 Mg/Ml Inj IV 03/23/20 07:27 Q2HP PRN PAIN SCALE 3-4 Morphine Sulfate 4 mg 03/16/20 07:28 Morphine 10 Mg/Ml Inj IV 03/23/20 07:27 Q2HP PRN PAIN SCALE 5 Ondansetron HCl 4 mg 03/16/20 07:01 Zofran Inj/Pf 4 Mg/2 Ml Sdv IV 04/15/20 07:00 Q4HP PRN FOR NAUSEA/VOMITING Pantoprazole Sodium 40 mg 03/16/20 10:00 Protonix Iv Inj 40 Mg Vial IV 03/23/20 09:59 Q12 NATE Sodium Chloride 2.5 ml 03/16/20 14:00 Saline Flush 2.5 Ml Monoject Prefil Syrin IV 04/15/20 13:59 Q8 NATE Discontinued Medications Generic Name Dose Route Start Last Admin Trade Name Freq PRN Reason Stop Dose Admin Pantoprazole Sodium Confirm 03/16/20 08:18 03/16/20 08:30 Protonix Iv Inj 40 Mg Vial Administered 03/16/20 08:19 Not Given Dose 40 mg IV .STK-MED ONE Piperacillin Sod/Tazobactam Sod Confirm 03/16/20 03:54 03/16/20 04:00 Zosyn Inj 3.375 Gm Vial Administered 03/16/20 03:55 Not Given Dose 3.375 gm IV .STK-MED ONE Piperacillin Sod/Tazobactam Sod 3.375 gm 03/16/20 04:00 03/16/20 04:04 Zosyn Inj 3.375 Gm Vial IV 03/16/20 04:01 3.375 gm ONCE ONE Administration Piperacillin Sod/Tazobactam Sod Confirm 03/16/20 08:18 03/16/20 08:30 Zosyn Inj 3.375 Gm Vial Administered 03/16/20 08:19 Not Given Dose 3.375 gm IV .STK-MED ONE Assessment & Plan - Diagnosis (1) Chronic systolic congestive heart failure due to valvular disease Is this a current diagnosis for this admission?: Yes Plan: Very pleasant 64-year-old male with a very extensive and complicated cardiac history as described above who was admitted for further evaluation and treatment of acute cholecystitis. The cardiovascular risk of this patient is extremely high given his cardiac history, possible need for ICD generator change due to battery depletion and mechanical aortic valves. Unfortunately this patient's cardiovascular needs exceed the capabilities of this facility therefore I recommend transfer to a tertiary care center. Of note, Dr. Palma called me earlier this morning to discuss this case with me and he also recommended transfer to a tertiary medical facility.
[2020-03-16 08:38] LABS: CREATINE KINASE MB 1.99 ng/mL (<4.55); TROPONIN I 0.062 ng/mL
[2020-03-16] MEDS: PANTOPRAZOLE SODIUM 40 MG VIAL IV SCH ×2 (09:41→21:43)
[2020-03-16] MEDS: DEXTROSE 5%-NORMAL SALINE 1,000 ML IV PRN ×2 (11:34→21:50)
[2020-03-16 14:12] LABS: CREATINE KINASE MB 1.71 ng/mL (<4.55); TROPONIN I 0.05 ng/mL
[2020-03-16] MEDS: LISINOPRIL 5 MG TABLET PO SCH (14:13)
--- NOTE | 2020-03-16 15:02 | PDOC PROGRESS REPORT ---
Subjective Progress Note for:: 03/16/20 Subjective:: The patient is resting comfortably. He looks surprisingly well for a patient with acute cholecystitis. Discussed with cardiology. Because of his cardiac issues transfer to higher level of care is recommended. Reason For Visit: ACUTE CHOLECYSTITIS Physical Exam Vital Signs: Temp Pulse Resp BP Pulse Ox 97.3 F 77 18 111/72 100 03/16/20 11:05 03/16/20 11:05 03/16/20 11:05 03/16/20 11:05 03/16/20 11:05 Intake & Output 03/15/20 03/16/20 03/17/20 06:59 06:59 06:59 Intake Total 200 235 Balance 200 235 Weight 70.9 kg General appearance: PRESENT: no acute distress, cooperative, well-developed Head exam: PRESENT: atraumatic, normocephalic Respiratory exam: PRESENT: clear to auscultation andriy, symmetrical, unlabored. ABSENT: rales, rhonchi, tachypnea, wheezes Cardiovascular exam: PRESENT: RRR, +S1, +S2, other - Metallic valve clicks GI/Abdominal exam: PRESENT: normal bowel sounds, soft. ABSENT: distended, guarding, tenderness Rectal exam: PRESENT: deferred Gentrourinary exam: ABSENT: indwelling catheter Extremities exam: ABSENT: pedal edema Musculoskeletal exam: PRESENT: ambulatory, normal inspection. ABSENT: deformity, dislocation Neurological exam: PRESENT: alert, awake, oriented to person, oriented to place, oriented to time, oriented to situation, CN II-XII grossly intact. ABSENT: altered Psychiatric exam: PRESENT: appropriate affect. ABSENT: agitated, anxious Focused psych exam: ABSENT: delusional, paranoid, restlessness Skin exam: PRESENT: dry, normal color, warm. ABSENT: rash Results Laboratory Results: 03/15/20 19:20 03/15/20 19:20 03/15/20 03/15/20 19:20 19:20 WBC 5.1 RBC 5.30 Hgb 15.5 Hct 48.1 MCV 91 MCH 29.2 MCHC 32.2 RDW 17.6 H Plt Count 115 L Seg Neutrophils % 62.3 Sodium 134.9 L Potassium 5.5 H Chloride 99 Carbon Dioxide 26 Anion Gap 10 BUN 38 H Creatinine 1.46 H Est GFR ( Amer) 59 L Glucose 97 Calcium 9.0 Total Bilirubin 1.8 H AST 42 Alkaline Phosphatase 130 H Total Protein 7.0 Albumin 4.0 Lipase 240.9 03/15/20 03/16/20 03/16/20 19:20 07:49 07:49 Creatine Kinase 35 L CK-MB (CK-2) 1.99 Troponin I 0.068 0.062 03/16/20 03/16/20 13:20 13:20 Creatine Kinase 34 L CK-MB (CK-2) 1.71 Troponin I 0.050 Impressions: Chest/Abdomen CTA 03/15/20 18:59 IMPRESSION: No evidence of aortic dissection or aneurysm Marked cardiac enlargement, predominantly left heart enlargement Basilar atelectasis and small bilateral effusions Wall thickening and edema in the gallbladder with probable cholelithiasis. Findings are concerning for acute cholecystitis although other etiology is not excluded Small amount of stranding in the abdomen and free fluid in the pelvis of uncertain clinical significance Abdomen/Pelvis CTA 03/15/20 19:02 IMPRESSION: No evidence of aortic dissection or aneurysm Marked cardiac enlargement, predominantly left heart enlargement Basilar atelectasis and small bilateral effusions Wall thickening and edema in the gallbladder with probable cholelithiasis. Findings are concerning for acute cholecystitis although other etiology is not excluded Small amount of stranding in the abdomen and free fluid in the pelvis of uncertain clinical significance Abdomen Ultrasound 03/15/20 21:25 IMPRESSION: Cholelithiasis. Gallbladder wall is slightly thickened at 6 mm however there is no pericholecystic fluid. CBD not dilated copyright 2011 [employer]- All Rights Reserved Assessment and Plan - Diagnosis (1) Acute calculous cholecystitis Is this a current diagnosis for this admission?: Yes Plan: CT scan shows some stranding and slight inflammation in the gallbladder. There are gallstones but the common bile duct is not dilated. The patient is afebrile. There is no elevated white blood cell count. Surgery actually commented that he does not need a cholecystectomy. Will monitor overnight to make sure he does not decline. (2) Abdominal pain Qualifiers: Abdominal location: epigastric Qualified Code(s): R10.13 - Epigastric pain Is this a current diagnosis for this admission?: Yes Plan: Pain is actually minimal. He is quite comfortable this morning. (3) Longstanding persistent atrial fibrillation Is this a current diagnosis for this admission?: Yes Plan: The patient is on amiodarone, Coreg and digoxin to maintain adequate control his atrial fibrillation. His anticoagulation is warfarin to keep the INR between 2.5 and 3.5 due to the mechanical heart valves. If surgery is indicated we would need to reverse the warfarin and keep the patient on heparin. (4) History of aortic valve replacement with metallic valve Is this a current diagnosis for this admission?: Yes Plan: Continue warfarin (5) History of mitral valve replacement with mechanical valve Is this a current diagnosis for this admission?: Yes Plan: Continue warfarin (6) Chronic systolic heart failure Is this a current diagnosis for this admission?: Yes Plan: Very complex cardiac history. Ejection fraction is 20 to 25%. The patient actually has an AICD in place but the ventricular lead is not functioning per his upper marker Dr. Palma. He is stable on his current medication regimen including amiodarone, carvedilol, digoxin, Imdur, Lasix, lisinopril and warfarin. - Plan Summary Summary: Patient will be admitted to the medical service where he will receive routine supportive and symptomatic cares. Dr. Summers will be consulting for the surgical service. Patient will be placed on Zosyn intravenously and a cardiology consultation with Dr. Ramachandran will be obtained at Dr. Summers's request. Patient will be n.p.o. and therefore all medications will be converted to IV or other than oral administration. Patient will receive Ativan 1 mg IV every 4 hours as needed for anxiety or restlessness. Patient received morphine sulfate 2 to 4 mg IV every 2 hours as needed for pain. CBCs, metabolic profiles and additional laboratory and/or radiographic evaluations will be obtained as needed. 03/16/2020 After discussion with cardiology the patient needs a much higher level of care. The pacemaker generator was supposed to be replaced 6 - 7 months ago in [place]. This was not done. The patient in fact has an appointment with a upper marker in [facility] (Dr. Yu) to address these issues. If he needs his surgery he would have to transfer to a much higher level of care due to the significant complexity of his heart disease. - Time Time Spent with patient: 15-24 minutes Medications reviewed and adjusted accordingly: Yes Anticipated Discharge Disposition: Tertiary Anticipated Discharge Timeframe: within 24 hours
--- NOTE | 2020-03-16 15:30 | EKG REPORT ---
SEVERITY:- ABNORMAL ECG - AFIB/FLUTTER AND VENTRICULAR-PACED RHYTHM : Confirmed by: Maxwell Dodd MD 16-Mar-2020 15:29:53
--- NOTE | 2020-03-16 16:37 | PDOC CONSULTATION ---
Consultation Consult Date: 03/16/20 Provider Consulted: MADISON LEDESMA Consult reason:: Abdominal pains History of Present Illness Admission Date/PCP: 03/16/20 07:44 СВЕТЛАНА HERNANDES History of Present Illness: SHANICE DENT is a 64 year old male with history of aortocoronary artery bypass with aortic valve replacement and now with AICD for poor cardiac ejection fraction. He has been on Coumadin. Is being followed by Dr. Hernandes and supposed to see him this Thursday for cardiology follow-up. Also supposed to see his GI at [facility] for upper and lower endoscopy. Patient has been complaining of left lower quadrant and epigastric pains for the past couple of weeks. He also lost about 20 pounds for the past 3 weeks since whenever he eats the food need to be followed with water in order for it to go down. Denies any nausea no vomiting. Occasionally has constipation and when he has a bowel movement he has to push and develops left lower quadrant pains. Denies any fever no chills. He had an ultrasound of the gallbladder which showed no evidence of stones or acute cholecystitis. CT scan of the abdomen showed possible gallstones with some thickening of the wall. Past Medical History Cardiac Medical History: Reports: Congestive Heart Failure - Chronic systolic congestive heart failure with EF of 20-25%, Myocardial Infarction, Hypertension, Other - Valvular (mitral) heart disease, dilated cardiomyopathy Pulmonary Medical History: Denies: Asthma, Chronic Obstructive Pulmonary Disease (COPD) EENT Medical History: Denies: Cataracts, Ears - Hearing aids Neurological Medical History: Denies: Hemorrhagic CVA, Ischemic CVA, Seizures Endocrine Medical History: Denies: Diabetes Mellitus Type 1, Diabetes Mellitus Type 2, Hyperthyroidism, Hypothyroidism, Obesity Renal/ Medical History: Denies: Chronic Kidney Disease, Nephrolithiasis Malignancy Medical History: Reports: None GI Medical History: Denies: Cirrhosis, Hepatitis, Peptic Ulcer Disease Musculoskeltal Medical History: Denies: Arthritis, Gout Skin Medical History: Denies: Eczema, Psoriasis Psychiatric Medical History: Denies: Alcohol Dependency, Substance Abuse, Tobacco Dependency Traumatic Medical History: Reports: None Hematology: Denies: Anemia, Bleeding Tendencies Infectious Medical History: Reports: None Past Surgical History Past Surgical History: Reports: Appendectomy, Cardiac Catheterization, Pacemaker, Valve Replacement - Mechanical mitral valve ([facility]) Social History Lives with: Spouse/Significant other Smoking Status: Never Smoker Electronic Cigarette use?: No Frequency of Alcohol Use: None Hx Recreational Drug Use: No Drugs: None Hx Prescription Drug Abuse: No - Advance Directive Resuscitation Status: Full Code Family History Family History: Reviewed & Not Pertinent Parental Family History Reviewed: Yes Children Family History Reviewed: No Sibling(s) Family History Reviewed.: No Medication/Allergy Home Medications: Amiodarone HCl [Cordarone 200 mg Tablet] 200 mg PO QAM 02/09/15 Digoxin [Lanoxin 0.125 mg Tablet] 0.125 mg PO DAILY 02/09/15 Furosemide [Lasix 40 mg Tablet] 20 mg PO Q12 02/09/15 Isosorbide Mononitrate [Imdur 60 mg Tablet.er] 60 mg PO QAM 02/09/15 Spironolactone 50 mg PO DAILY 02/09/15 Carvedilol [Coreg 6.25 mg Tablet] 6.25 mg PO Q12 03/16/20 Lisinopril [Zestril] 2.5 mg PO DAILY 03/16/20 Warfarin Sodium [Jantoven 2 mg Tablet] 2 mg PO QHS 03/16/20 Allergies/Adverse Reactions: No Known Allergies Allergy (Verified 02/09/15 13:59) Review of Systems Constitutional: PRESENT: as per HPI Gastrointestinal: PRESENT: abdominal pain - Epigastric and left lower quadrant pains, constipation - Occasional pains in the left lower quadrant whenever he push when having bowel movement Genitourinary: PRESENT: other - No dysuria Physical Exam Vital Signs: Temp Pulse Resp BP Pulse Ox 97.3 F 77 18 111/72 100 03/16/20 11:05 03/16/20 11:05 03/16/20 11:05 03/16/20 11:05 03/16/20 11:05 Intake & Output 03/15/20 03/16/20 03/17/20 06:59 06:59 06:59 Intake Total 200 235 Balance 200 235 Weight 70.9 kg General appearance: PRESENT: mild distress Head exam: PRESENT: atraumatic Eye exam: PRESENT: conjunctiva pink Mouth exam: PRESENT: moist Neck exam: PRESENT: full ROM Respiratory exam: PRESENT: clear to auscultation andriy Cardiovascular exam: PRESENT: RRR Pulses: PRESENT: normal radial pulses Vascular exam: PRESENT: normal capillary refill GI/Abdominal exam: PRESENT: soft, tenderness - Mild tenderness of the epigastric and left lower quadrant. No tenderness at the right upper quadrant Rectal exam: PRESENT: deferred Neurological exam: PRESENT: alert, oriented to person, oriented to place, oriented to time, oriented to situation Psychiatric exam: PRESENT: appropriate affect Skin exam: PRESENT: normal color, warm Results Laboratory Results: 03/15/20 19:20 03/15/20 19:20 03/15/20 03/15/20 19:20 19:20 WBC 5.1 RBC 5.30 Hgb 15.5 Hct 48.1 MCV 91 MCH 29.2 MCHC 32.2 RDW 17.6 H Plt Count 115 L Seg Neutrophils % 62.3 Sodium 134.9 L Potassium 5.5 H Chloride 99 Carbon Dioxide 26 Anion Gap 10 BUN 38 H Creatinine 1.46 H Est GFR ( Amer) 59 L Glucose 97 Calcium 9.0 Total Bilirubin 1.8 H AST 42 Alkaline Phosphatase 130 H Total Protein 7.0 Albumin 4.0 Lipase 240.9 03/15/20 03/16/20 03/16/20 19:20 07:49 07:49 Creatine Kinase 35 L CK-MB (CK-2) 1.99 Troponin I 0.068 0.062 03/16/20 03/16/20 13:20 13:20 Creatine Kinase 34 L CK-MB (CK-2) 1.71 Troponin I 0.050 Impressions: Chest/Abdomen CTA 03/15/20 18:59 IMPRESSION: No evidence of aortic dissection or aneurysm Marked cardiac enlargement, predominantly left heart enlargement Basilar atelectasis and small bilateral effusions Wall thickening and edema in the gallbladder with probable cholelithiasis. Findings are concerning for acute cholecystitis although other etiology is not excluded Small amount of stranding in the abdomen and free fluid in the pelvis of uncertain clinical significance Abdomen/Pelvis CTA 03/15/20 19:02 IMPRESSION: No evidence of aortic dissection or aneurysm Marked cardiac enlargement, predominantly left heart enlargement Basilar atelectasis and small bilateral effusions Wall thickening and edema in the gallbladder with probable cholelithiasis. Findings are concerning for acute cholecystitis although other etiology is not excluded Small amount of stranding in the abdomen and free fluid in the pelvis of uncertain clinical significance Abdomen Ultrasound 03/15/20 21:25 IMPRESSION: Cholelithiasis. Gallbladder wall is slightly thickened at 6 mm however there is no pericholecystic fluid. CBD not dilated copyright 2011 [employer]- All Rights Reserved Assessment & Plan - Diagnosis (1) Abdominal pain Qualifiers: Abdominal location: epigastric Qualified Code(s): R10.13 - Epigastric pain Is this a current diagnosis for this admission?: Yes (2) Cardiac pacemaker in situ Is this a current diagnosis for this admission?: Yes (3) Cardiomyopathy Is this a current diagnosis for this admission?: Yes (4) Gallstones Is this a current diagnosis for this admission?: Yes - Time Time Spent: 30 to 50 Minutes - Plan Summary Plan Summary: 64-year-old male with extensive cardiac history with what he claims a mitral valve replacement and coronary artery bypass with eventful poor cardiac ejection fraction requiring pacemaker and AICD. He has pains in the epigastric area and the left lower quadrant with history of constipation. No right upper quadrant pains nor tenderness. Ultrasound showed no stones in the gallbladder and no evidence of cholecystitis. The CT scan showed possible gallstones with somewhat thickened wall. I do not think there is any evidence of acute cholecystitis on this patient. He has more evidence of possible gastritis and constipation. At any rate he is not a good Surgical candidate at this time. We will sign off. Call for any questions.
[2020-03-16 19:48] LABS: CREATINE KINASE MB 1.72 ng/mL (<4.55); TROPONIN I 0.05 ng/mL
[2020-03-16] MEDS: FUROSEMIDE 40 MG TABLET PO SCH (21:43)
[2020-03-16] MEDS: CARVEDILOL 6.25 MG TABLET PO SCH (21:43)
[2020-03-17] MEDS: PIPERACILLIN SODIUM/TAZOBACTAM 3.375 GM in NORMAL SALINE 100 ML IV SCH ×2 (02:42→08:49)
[2020-03-17 06:21] LABS: HEMATOCRIT 46.8 % (37.9-51.0); HEMOGLOBIN 15.3 g/dL (13.5-17.0); MEAN CORPUSCULAR HEMOGLOBIN 29.5 pg (27.0-33.4); MEAN CORPUSCULAR HGB CONC 32.7 g/dL (32.0-36.0); MEAN CORPUSCULAR VOLUME 90 fl (80-97); PLATELET COUNT 106 10^3/uL (150-450); RED CELL DISTRIBUTION WIDTH 17.5 % (11.5-14.0); WHITE BLOOD COUNT 4.6 10^3/uL (4.0-10.5)
[2020-03-17 06:41] LABS: ALBUMIN 3.5 g/dL (3.5-5.0); ALKALINE PHOSPHATASE 110 U/L (38-126); ANION GAP 8 (5-19); ASPARTATE AMINO TRANSFERASE 31 U/L (17-59); BILIRUBIN,DIRECT 0.9 mg/dL (0.0-0.4); BILIRUBIN,TOTAL 2.1 mg/dL (0.2-1.3); BLOOD UREA NITROGEN 29 mg/dL (7-20); CALCIUM 8.4 mg/dL (8.4-10.2); CARBON DIOXIDE 21 mmol/L (22-30); CHLORIDE 106 mmol/L (98-107); DIGOXIN 1.26 ng/mL (0.8-2.0); GLUCOSE 139 mg/dL (75-110); POTASSIUM 4.7 mmol/L (3.6-5.0); TOTAL PROTEIN 6.4 g/dL (6.3-8.2)
--- NOTE | 2020-03-17 07:33 | PDOC PROGRESS REPORT ---
Subjective Progress Note for:: 03/17/20 Subjective:: SHANICE DENT is a 64 year old male with a very extensive and complicated cardiac history to include hypertension, heart failure with reduced ejection fraction suspected to be secondary to valvular heart disease and nonischemic cardiomyopathy with an ejection fraction between 20 and 25%, chronic atrial fibrillation, severe mitral stenosis and severe aortic stenosis status post mitral valve replacement with mechanical valve and status post aortic valve replacement with a mechanical prosthesis approximately 7 years ago, anticoagulated with warfarin, biventricular ICD which was apparently interrogated 7 months ago in [place] and the patient was told he needed a generator change at that time who is consulted to our service for risk assessment. The patient had been having abdominal pain recently and upon evaluation in the emergency room it was determined that he has acute cholecystitis. Per the emergency room physician report surgery is treating him with antibiotics for now. The patient denies ischemic and heart failure symptoms at this point. I did speak with the patient's outpatient senior network administrator, Dr. Palma, who evaluated the patient earlier this week and found that the ventricular lead of the ICD is nonfunctional. 03/17/2020: The patient was initially diagnosed with acute cholecystitis and apparently surgery was planning to operate on him. Ultimately, he was deemed not to have acute cholecystitis but gastritis/reflux and was admitted to the medicine service. He had an uneventful night and denies chest pain, shortness of breath, ROLAND, PND, lower extremity edema, palpitations, syncope and presyncope. His telemetry shows a ventricularly paced rhythm with underlying atrial fibrillation. Unfortunately he has not received his Coumadin yet but his INR yesterday was close to goal at 2.46. Of note, given his mechanical mitral valve , his goal INR is between 2.5 and 3.5. Physical exam on 03/17/2020: GENERAL: Pleasant and conversational. Oriented x3 with normal mood. Not in acute distress. Well groomed and well developed. HEENT: Normocephalic, atraumatic. Pupils equal. Sclerae anicteric. Oropharynx moist. NECK: No JVD. No carotid bruits. LUNGS: Clear to auscultation bilaterally. Normal respiratory effort without the use of accessory muscles or intercostal retractions. CARDIOVASCULAR: Regular rate and rhythm, normal S1 and S2 without murmurs, rubs, or gallops. PMI not displaced. EXTREMITIES: Trace to 1+ pitting edema bilaterally, no cyanosis, no clubbing. +2 pulses femoral and pedal pulses bilaterally. SKIN: No lesions or rashes. MUSCULOSKELETAL: No chest tenderness to palpation. NEUROLOGIC: Nonfocal. No gross sensory or motor deficits bilateral upper or lower extremities. Reason For Visit: ACUTE CHOLECYSTITIS Physical Exam Vital Signs: Temp Pulse Resp BP Pulse Ox 97.5 F 70 16 99/62 L 100 03/16/20 20:07 03/17/20 02:00 03/16/20 23:20 03/16/20 23:20 03/16/20 23:20 Intake & Output 03/15/20 03/16/20 03/17/20 06:59 06:59 06:59 Intake Total 200 2205 Balance 200 2205 Weight 70.9 kg Results Laboratory Results: 03/15/20 19:20 03/15/20 19:20 03/15/20 03/16/20 03/16/20 19:20 07:49 07:49 Creatine Kinase 35 L CK-MB (CK-2) 1.99 Troponin I 0.068 0.062 03/16/20 03/16/20 03/16/20 13:20 13:20 19:01 Creatine Kinase 34 L 34 L CK-MB (CK-2) 1.71 Troponin I 0.050 03/16/20 19:01 Creatine Kinase CK-MB (CK-2) 1.72 Troponin I 0.050 Impressions: Chest/Abdomen CTA 03/15/20 18:59 IMPRESSION: No evidence of aortic dissection or aneurysm Marked cardiac enlargement, predominantly left heart enlargement Basilar atelectasis and small bilateral effusions Wall thickening and edema in the gallbladder with probable cholelithiasis. Findings are concerning for acute cholecystitis although other etiology is not excluded Small amount of stranding in the abdomen and free fluid in the pelvis of uncertain clinical significance Abdomen/Pelvis CTA 03/15/20 19:02 IMPRESSION: No evidence of aortic dissection or aneurysm Marked cardiac enlargement, predominantly left heart enlargement Basilar atelectasis and small bilateral effusions Wall thickening and edema in the gallbladder with probable cholelithiasis. Findings are concerning for acute cholecystitis although other etiology is not excluded Small amount of stranding in the abdomen and free fluid in the pelvis of uncertain clinical significance Abdomen Ultrasound 03/15/20 21:25 IMPRESSION: Cholelithiasis. Gallbladder wall is slightly thickened at 6 mm however there is no pericholecystic fluid. CBD not dilated copyright 2011 [employer]- All Rights Reserved 03/15/20 19:20 03/15/20 19:20 MCV 91 fl (80-97) 03/15/20 19:20 MCH 29.2 pg (27.0-33.4) 03/15/20 19:20 MCHC 32.2 g/dL (32.0-36.0) 03/15/20 19:20 RDW 17.6 % (11.5-14.0) H 03/15/20 19:20 Seg Neutrophils % 62.3 % (42-78) 03/15/20 19:20 Chloride 99 mmol/L (98-107) 03/15/20 19:20 Carbon Dioxide 26 mmol/L (22-30) 03/15/20 19:20 Anion Gap 10 (5-19) 03/15/20 19:20 Est GFR ( Amer) 59 (>60) L 03/15/20 19:20 Glucose 97 mg/dL (75-110) 03/15/20 19:20 Calcium 9.0 mg/dL (8.4-10.2) 03/15/20 19:20 Total Bilirubin 1.8 mg/dL (0.2-1.3) H 03/15/20 19:20 AST 42 U/L (17-59) 03/15/20 19:20 Alkaline Phosphatase 130 U/L (38-126) H 03/15/20 19:20 Total Protein 7.0 g/dL (6.3-8.2) 03/15/20 19:20 Albumin 4.0 g/dL (3.5-5.0) 03/15/20 19:20 Lipase 240.9 U/L (23-300) 03/15/20 19:20 03/15/20 03/16/20 03/16/20 19:20 07:49 07:49 Creatine Kinase 35 L CK-MB (CK-2) 1.99 Troponin I 0.068 0.062 03/16/20 03/16/20 03/16/20 13:20 13:20 19:01 Creatine Kinase 34 L 34 L CK-MB (CK-2) 1.71 Troponin I 0.050 03/16/20 19:01 Creatine Kinase CK-MB (CK-2) 1.72 Troponin I 0.050 Current Medication List Generic Name Dose Route Start Last Admin Trade Name Margarette PRN Reason Stop Dose Admin Acetaminophen 650 mg 03/16/20 07:06 Tylenol 650 Mg Supp CO 04/15/20 07:05 Q4HP PRN For headache, pain or fever Amiodarone HCl 200 mg 03/17/20 08:00 Cordarone 200 Mg Tablet PO 04/16/20 07:59 QAM NATE Carvedilol 6.25 mg 03/16/20 22:00 03/16/20 21:43 Coreg 6.25 Mg Tablet PO 04/15/20 21:59 6.25 mg Q12 NATE Administration Digoxin 0.125 mg 03/17/20 10:00 Lanoxin 0.125 Mg Tablet PO 04/16/20 09:59 DAILY NATE Furosemide 20 mg 03/16/20 22:00 03/16/20 21:43 Lasix 40 Mg Tablet PO 04/15/20 21:59 20 mg Q12 NATE Administration Dextrose/Sodium Chloride 1,000 mls @ 125 mls/hr 03/16/20 07:08 03/16/20 21:50 D5ns 1000 Ml Iv Soln IV 04/15/20 07:07 125 mls/hr CONTINUOUS PRN Administration THIS MED IS NOT "PRN" Piperacillin Sod/Tazobactam 100 mls @ 200 mls/hr 03/16/20 09:00 03/17/20 02:42 Sod 3.375 gm/ Sodium Chloride IV 03/23/20 08:59 200 mls/hr Q6A NATE Administration Isosorbide Mononitrate 60 mg 03/17/20 08:00 Imdur 60 Mg Tablet.Er PO 04/16/20 07:59 QAM NATE Lisinopril 2.5 mg 03/16/20 14:00 03/16/20 14:13 Prinivil 5 Mg Tablet PO 04/15/20 13:59 2.5 mg DAILY NATE Administration Lorazepam 1 mg 03/16/20 07:06 Ativan Inj 2 Mg/1 Ml Vial IV 03/23/20 07:05 Q4HP PRN ANXIETY/AGITATION Morphine Sulfate 2 mg 03/16/20 07:26 Morphine 10 Mg/Ml Inj IV 03/23/20 07:25 Q2HP PRN PAIN SCALE 2 Morphine Sulfate 3 mg 03/16/20 07:28 03/16/20 23:31 Morphine 10 Mg/Ml Inj IV 03/23/20 07:27 3 mg Q2HP PRN Administration PAIN SCALE 3-4 Morphine Sulfate 4 mg 03/16/20 07:28 Morphine 10 Mg/Ml Inj IV 03/23/20 07:27 Q2HP PRN PAIN SCALE 5 Ondansetron HCl 4 mg 03/16/20 07:01 Zofran Inj/Pf 4 Mg/2 Ml Sdv IV 04/15/20 07:00 Q4HP PRN FOR NAUSEA/VOMITING Pantoprazole Sodium 40 mg 03/16/20 10:00 03/16/20 21:43 Protonix Iv Inj 40 Mg Vial IV 03/23/20 09:59 40 mg Q12 NATE Administration Sodium Chloride 2.5 ml 03/16/20 14:00 03/17/20 05:23 Saline Flush 2.5 Ml Monoject Prefil Syrin IV 04/15/20 13:59 Not Given Q8 NATE Spironolactone 50 mg 03/17/20 10:00 Aldactone 25 Mg Tablet PO 04/16/20 09:59 DAILY NATE Discontinued Medications Generic Name Dose Route Start Last Admin Trade Name Freq PRN Reason Stop Dose Admin Pantoprazole Sodium Confirm 03/16/20 08:18 03/16/20 08:30 Protonix Iv Inj 40 Mg Vial Administered 03/16/20 08:19 Not Given Dose 40 mg IV .STK-MED ONE Piperacillin Sod/Tazobactam Sod Confirm 03/16/20 03:54 03/16/20 04:00 Zosyn Inj 3.375 Gm Vial Administered 03/16/20 03:55 Not Given Dose 3.375 gm IV .STK-MED ONE Piperacillin Sod/Tazobactam Sod 3.375 gm 03/16/20 04:00 03/16/20 04:04 Zosyn Inj 3.375 Gm Vial IV 03/16/20 04:01 3.375 gm ONCE ONE Administration Piperacillin Sod/Tazobactam Sod Confirm 03/16/20 08:18 03/16/20 08:30 Zosyn Inj 3.375 Gm Vial Administered 03/16/20 08:19 Not Given Dose 3.375 gm IV .STK-MED ONE Assessment & Plan - Diagnosis (1) Chronic systolic congestive heart failure due to valvular disease Is this a current diagnosis for this admission?: Yes Plan: The patient is clinically euvolemic and on GDMT. His blood pressure is at goal and he remains asymptomatic. There are no ventricular arrhythmias on telemetry. The patient has an ICD in place. Recommendations: -Continue with current medical management. -Cardiology does not have further recommendations therefore we will bogdan off for now. Please reconsult if clinically indicated. (2) Ischemic cardiomyopathy Plan: The patient has an ICD in place however this device should be interrogated as soon as possible as there are reports that the battery is depleting. Unfortunately we do not have EP service at this facility however the patient already has an appointment with Dr. Raymundo, and electrophysiology specialist with [facility]. His telemetry shows a ventricularly paced rhythm without complex ventricular dysrhythmias. He is clinically and electrically stable. Recommendations: -Continue with current medical management. -Follow-up with EP at [facility] as scheduled. (3) Valvular heart disease Is this a current diagnosis for this admission?: Yes Plan: The patient has both aortic and mitral valves replaced with mechanical prosthesis by Dr. Palma's report. His INR yesterday was close to his goal of 2.5-3.5 however he has not received any Coumadin since admission. It is imperative to keep his INR at goal particularly with a mitral mechanical valve who are very prone to clotting. The patient states that he takes 2 mg of Coumadin every night. Recommendations: -Restart Coumadin at 2 mg nightly and check PT/INR per hospital protocol. (4) Atrial fibrillation Qualifiers: Atrial fibrillation type: permanent Qualified Code(s): I48.21 - Permanent atrial fibrillation Is this a current diagnosis for this admission?: Yes Plan: Rate controlled at this time and anticoagulated with Coumadin.
[2020-03-17] MEDS ORDERED: ISOSORBIDE MONONITRATE 60 MG TAB.ER.24H PO SCH (08:00)
[2020-03-17] MEDS ORDERED: AMIODARONE HCL 200 MG TABLET PO SCH (08:00)
[2020-03-17] MEDS ORDERED: (PENDING PHARMACY ID) (Lisinopril [Zestril] 2.5 MG) PO SCH (10:00)
[2020-03-17] MEDS ORDERED: SPIRONOLACTONE 25 MG TABLET PO SCH (10:00)
[2020-03-17] MEDS ORDERED: DIGOXIN 0.125 MG TABLET PO SCH (10:00)
[2020-03-17] MEDS: FUROSEMIDE 40 MG TABLET PO SCH (10:14)
[2020-03-17] MEDS: CARVEDILOL 6.25 MG TABLET PO SCH (10:14)
[2020-03-17] MEDS: LISINOPRIL 5 MG TABLET PO SCH (10:14)
[2020-03-17] MEDS: PANTOPRAZOLE SODIUM 40 MG VIAL IV SCH (10:15)
--- NOTE | 2020-03-17 11:21 | PDOC DISCHARGE SUMMARY ---
Impression - Admit/DC Date/PCP Admission Date/Primary Care Provider: 03/16/20 07:44 СВЕТЛАНА HERNANDES Discharge Date: 03/17/20 - Discharge Diagnosis (1) Acute calculous cholecystitis Is this a current diagnosis for this admission?: Yes (2) Abdominal pain Is this a current diagnosis for this admission?: Yes (3) Longstanding persistent atrial fibrillation Is this a current diagnosis for this admission?: Yes (4) History of aortic valve replacement with metallic valve Is this a current diagnosis for this admission?: Yes (5) History of mitral valve replacement with mechanical valve Is this a current diagnosis for this admission?: Yes (6) Chronic systolic heart failure Is this a current diagnosis for this admission?: Yes - Assessment Summary: Patient will be admitted to the medical service where he will receive routine supportive and symptomatic cares. Dr. Summers will be consulting for the surgical service. Patient will be placed on Zosyn intravenously and a cardiology consultation with Dr. Ramachandran will be obtained at Dr. Summers's request. Patient will be n.p.o. and therefore all medications will be converted to IV or other than oral administration. Patient will receive Ativan 1 mg IV every 4 hours as needed for anxiety or restlessness. Patient received morphine sulfate 2 to 4 mg IV every 2 hours as needed for pain. CBCs, metabolic profiles and additional laboratory and/or radiographic evaluations will be obtained as needed. 03/16/2020 After discussion with cardiology the patient needs a much higher level of care. The pacemaker generator was supposed to be replaced 6 - 7 months ago in [place]. This was not done. The patient in fact has an appointment with a automated access systems technician [facility] (Dr. Yu) to address these issues. If he needs his surgery he would have to transfer to a much higher level of care due to the significant complexity of his heart disease. - Additional Information Resuscitation Status: Full Code Discharge Diet: Cardiac Discharge Activity: Activity As Tolerated Referrals: СВЕТЛАНА HERNANDES MD [Primary Care Provider] - 03/21/20 (PT HAS A FOLLOW UP THIS THURSDAY) Prescriptions: Amoxicillin/Potassium Clav [Augmentin 500-125 Tablet] 1 each PO BID 9 Days #18 tablet Home Medications: Amiodarone HCl [Cordarone 200 mg Tablet] 200 mg PO QAM 02/09/15 Digoxin [Lanoxin 0.125 mg Tablet] 0.125 mg PO DAILY 02/09/15 Furosemide [Lasix 40 mg Tablet] 20 mg PO Q12 02/09/15 Isosorbide Mononitrate [Imdur 60 mg Tablet.er] 60 mg PO QAM 02/09/15 Spironolactone 50 mg PO DAILY 02/09/15 Carvedilol [Coreg 6.25 mg Tablet] 6.25 mg PO Q12 03/16/20 Lisinopril [Zestril] 2.5 mg PO DAILY 03/16/20 Warfarin Sodium [Jantoven 2 mg Tablet] 2 mg PO QHS 03/16/20 Amoxicillin/Potassium Clav [Augmentin 500-125 Tablet] 1 each PO BID 9 Days #18 tablet 03/17/20 History of Present Illiness History of Present Illness: SHANICE DENT is a 64 year old male who presented the emergency room with a 3-month history of epigastric abdominal pain. He admits having intermittent episodes of severe colicky pressure epigastric abdominal pain without radiation for the last 3 months. The pain comes frequently and over the last 1 to 2 weeks has occurring at least once daily. The pain is worse after eating and usually persists for several hours. The pain is associated with nausea. Patient denies other associated or accompanying signs and symptoms. He admits prior similar episodes. He has not identified any additional aggravating or ameliorating factors for his pain. Patient is noted to be a difficult/poor historian. In the emergency room the patient was found to have acute cholecystitis and was subsequently admitted to the hospital for further evaluation and treatment with Dr. Wicho Summers consulting for surgery. Hospital Course Hospital Course: The patient actually had an unremarkable course. He is pain-free. He is not spiked a fever. His vital signs are rocksolid. He in fact has no abdominal pain. His bilirubin is up slightly but this is a normal pattern after passing a stone. His transaminases and lipase are actually normal. Surgery said yesterday that he did not need a cholecystectomy. With the significant cardiac issues, his stability and an appointment with the automated access systems technician to address all of these issues on Thursday, I feel it is reasonable to place him on antibiotic therapy and send him home as the cardiology appointment is extremely important. The patient can certainly undergo elective cholecystectomy after the cardiac issues are addressed. Physical Exam Vital Signs: Temp Pulse Resp BP Pulse Ox 97.2 F 71 16 107/75 100 03/17/20 05:28 03/17/20 08:17 03/17/20 08:17 03/17/20 08:17 03/17/20 08:17 Intake & Output 03/16/20 03/17/20 03/18/20 06:59 06:59 06:59 Intake Total 200 2325 240 Balance 200 2325 240 Weight 70.9 kg 72.8 kg General appearance: PRESENT: no acute distress Respiratory exam: PRESENT: clear to auscultation andriy, symmetrical, unlabored. ABSENT: rales, rhonchi, tachypnea, wheezes Cardiovascular exam: PRESENT: irregular rhythm, +S1, +S2, other - Metallic valve clicks GI/Abdominal exam: PRESENT: normal bowel sounds, soft. ABSENT: distended, guarding, tenderness Rectal exam: PRESENT: deferred Musculoskeletal exam: PRESENT: ambulatory, normal inspection. ABSENT: deformity, dislocation Neurological exam: PRESENT: alert, awake, oriented to person, oriented to place, oriented to time, oriented to situation, CN II-XII grossly intact. ABSENT: altered Psychiatric exam: PRESENT: appropriate affect, normal mood. ABSENT: agitated, anxious Focused psych exam: ABSENT: delusional, paranoid, restlessness Results Laboratory Results: WBC 4.6 10^3/uL (4.0-10.5) 03/17/20 05:54 RBC 5.20 10^6/uL (4.35-5.55) 03/17/20 05:54 Hgb 15.3 g/dL (13.5-17.0) 03/17/20 05:54 Hct 46.8 % (37.9-51.0) 03/17/20 05:54 MCV 90 fl (80-97) 03/17/20 05:54 MCH 29.5 pg (27.0-33.4) 03/17/20 05:54 MCHC 32.7 g/dL (32.0-36.0) 03/17/20 05:54 RDW 17.5 % (11.5-14.0) H 03/17/20 05:54 Plt Count 106 10^3/uL (150-450) L 03/17/20 05:54 Lymph % (Auto) 22.4 % (13-45) 03/15/20 19:20 Wright % (Auto) 9.4 % (3-13) 03/15/20 19:20 Eos % (Auto) 4.8 % (0-6) 03/15/20 19:20 Baso % (Auto) 1.1 % (0-2) 03/15/20 19:20 Absolute Neuts (auto) 3.2 10^3/uL (1.7-8.2) 03/15/20 19:20 Absolute Lymphs (auto) 1.1 10^3/uL (0.5-4.7) 03/15/20 19:20 Absolute Monos (auto) 0.5 10^3/uL (0.1-1.4) 03/15/20 19:20 Absolute Eos (auto) 0.2 10^3/uL (0.0-0.6) 03/15/20 19:20 Absolute Basos (auto) 0.1 10^3/uL (0.0-0.2) 03/15/20 19:20 Seg Neutrophils % 62.3 % (42-78) 03/15/20 19:20 PT 26.6 SEC (11.4-15.4) H 03/16/20 07:49 INR 2.46 03/16/20 07:49 APTT 35.2 SEC (23.5-35.8) 03/16/20 07:49 Sodium 134.8 mmol/L (137-145) L 03/17/20 05:54 Potassium 4.7 mmol/L (3.6-5.0) 03/17/20 05:54 Chloride 106 mmol/L (98-107) 03/17/20 05:54 Carbon Dioxide 21 mmol/L (22-30) L 03/17/20 05:54 Anion Gap 8 (5-19) 03/17/20 05:54 BUN 29 mg/dL (7-20) H 03/17/20 05:54 Creatinine 1.18 mg/dL (0.52-1.25) 03/17/20 05:54 Est GFR ( Amer) > 60 (>60) 03/17/20 05:54 Est GFR (MDRD) Non-Af > 60 (>60) 03/17/20 05:54 Glucose 139 mg/dL (75-110) H 03/17/20 05:54 Calcium 8.4 mg/dL (8.4-10.2) 03/17/20 05:54 Magnesium 2.6 mg/dL (1.6-2.3) H 03/17/20 05:54 Total Bilirubin 2.1 mg/dL (0.2-1.3) H 03/17/20 05:54 Direct Bilirubin 0.9 mg/dL (0.0-0.4) H 03/17/20 05:54 Neonat Total Bilirubin Not Reportable 03/17/20 05:54 Neonat Direct Bilirubin Not Reportable 03/17/20 05:54 Neonat Indirect Bili Not Reportable 03/17/20 05:54 AST 31 U/L (17-59) 03/17/20 05:54 ALT 31 U/L (<50) 03/17/20 05:54 Alkaline Phosphatase 110 U/L (38-126) 03/17/20 05:54 Creatine Kinase 34 U/L (55-170) L 03/16/20 19:01 CK-MB (CK-2) 1.72 ng/mL (<4.55) 03/16/20 19:01 Troponin I 0.050 ng/mL 03/16/20 19:01 Total Protein 6.4 g/dL (6.3-8.2) 03/17/20 05:54 Albumin 3.5 g/dL (3.5-5.0) 03/17/20 05:54 Lipase 240.9 U/L (23-300) 03/15/20 19:20 Digoxin 1.26 ng/mL (0.8-2.0) 03/17/20 05:54 03/15/20 03/16/20 03/16/20 19:20 07:49 13:20 CK-MB (CK-2) 1.99 1.71 Troponin I 0.068 0.062 0.050 03/16/20 19:01 CK-MB (CK-2) 1.72 Troponin I 0.050 Impressions: Chest/Abdomen CTA 03/15/20 18:59 IMPRESSION: No evidence of aortic dissection or aneurysm Marked cardiac enlargement, predominantly left heart enlargement Basilar atelectasis and small bilateral effusions Wall thickening and edema in the gallbladder with probable cholelithiasis. Findings are concerning for acute cholecystitis although other etiology is not excluded Small amount of stranding in the abdomen and free fluid in the pelvis of uncertain clinical significance Abdomen/Pelvis CTA 03/15/20 19:02 IMPRESSION: No evidence of aortic dissection or aneurysm Marked cardiac enlargement, predominantly left heart enlargement Basilar atelectasis and small bilateral effusions Wall thickening and edema in the gallbladder with probable cholelithiasis. Findings are concerning for acute cholecystitis although other etiology is not excluded Small amount of stranding in the abdomen and free fluid in the pelvis of uncertain clinical significance Abdomen Ultrasound 03/15/20 21:25 IMPRESSION: Cholelithiasis. Gallbladder wall is slightly thickened at 6 mm however there is no pericholecystic fluid. CBD not dilated copyright 2011 [employer]- All Rights Reserved Plan Health Concerns: This patient's cardiology needs far outweigh cystitis. In fact his cholecystitis is minimal. Plan of Treatment: I am going to discharge the patient on antibiotic therapy. It is extremely important for the patient to keep his appointment with cardiology. Cardiology hopefully will be able to change the generator and address the nonfunctioning ventricular lead. Once patient is stable then he can undergo elective cholecystectomy. Goals: Correction of cardiac issues and then elective cholecystectomy Time Spent: Greater than 30 Minutes Stroke Is this a Stroke Patient?: No Acute Heart Failure - Is this a Heart Failure Patient?: No
[2020-03-17 14:24] VITALS: BP 112/75
== END 2020-03-17 13:09 | disposition home or self-care (01) | DRG 445 ==
LOC: ER 17:39 → EH 03-16 07:44 → 4N 03-16 10:49
PROVIDERS: ADMIT Emergency Medicine; ATTEND Hospitalist
DX: K80.00 Calculus of gallbladder with acute cholecystitis without obstruction (principal); I50.22 Chronic systolic (congestive) heart failure; I48.11 Longstanding persistent atrial fibrillation; T82.111A Breakdown (mechanical) of cardiac pulse generator (battery), initial encounter; I42.0 Dilated cardiomyopathy; I10 Essential (primary) hypertension; I25.5 Ischemic cardiomyopathy; Y84.8 Other medical procedures as the cause of abnormal reaction of the patient, or of later complication, without mention of misadventure at the time of the procedure; Z95.2 Presence of prosthetic heart valve; Z79.01 Long term (current) use of anticoagulants; Z90.49 Acquired absence of other specified parts of digestive tract; Z79.899 Other long term (current) drug therapy; Z95.810 Presence of automatic (implantable) cardiac defibrillator
CPT/HCPCS: 36415; 71275; 74174; 76705; 80053; 80162; 82550; 82553; 83690; 83735; 84484; 85025; 85027; 85610; 85730; 93005; 93010; 96365; 99285; C9113; J2270; J2543; J3490; J7042; J7050